=== PATIENT | male | born 1960 | race Caucasian/White ===

== ENCOUNTER 2022-01-10 13:24 | Outpatient (RCR) | payer OTHER ==
[~2022-01-10] VITALS: Ht 193 cm; Wt 107.0 kg
[2022-01-10 14:29] LABS: HEMATOCRIT 45.7 % (42.0-52.0); HEMOGLOBIN 15.8 g/dl (13.5-18.0); MEAN CELL VOLUME 98 fl (80.0-100.0); MEAN CORPUSCULAR HEMOGLOBIN 34 pg (27-31); MEAN CORPUSCULAR HGB CONC 35 g/dl (33.0-37.0); MEAN PLATELET VOLUME 8.6 fl (7.4-10.4); PLATELET COUNT 228 K/mm3 (130-400); RED BLOOD COUNT 4.67 M/mm3 (4.20-5.60); REDCELL DISTRIBUTION WIDTH-CV 12.2 % (11.5-14.5)
[2022-01-10] MEDS ORDERED: ROCEPHIN 2GM VIAL21 IV (14:34)
[2022-01-10] MEDS ORDERED: MOTRIN 200200 MG/TAB PO (14:34)
[2022-01-10 14:55] LABS: ERYTHROCYTE SEDIMENTATION RATE 16 mm/hr (0-30)
[2022-01-10 15:07] VITALS: BP 130/77; PULSE 78; TEMP 97
== END 2022-01-10 14:50 | disposition home or self-care (01) ==
LOC: EUO 13:24
PROVIDERS: Orthopaedic Surgery
DX: Z45.2 Encounter for adjustment and management of vascular access device (principal); M00.9 Pyogenic arthritis, unspecified; Z98.890 Other specified postprocedural states
CPT/HCPCS: C1751; J0696

== ENCOUNTER 2022-04-13 10:44 | Outpatient (CLI) | payer BC ==
[~2022-04-13] VITALS: Ht 193 cm; Wt 112.3 kg
[~2022-04-13 10:44] MED LIST: MOTRIN 200200 MG/TAB PO; ROCEPHIN 2GM VIAL21 IV
[2022-04-13 11:05] VITALS: BP 149/98; PULSE 79; TEMP 98.7
--- NOTE | 2022-04-13 12:20 | NUR ---
PICC placed, dressing remains clean, dry and intact. BONG wrap in place around PICC. He exits dept by ambulation to meet in waiting room, he refuses wheelchair assistance out.
== END 2022-04-13 12:25 | disposition home or self-care (01) ==
LOC: EUO 10:44
DX: M00.872 Arthritis due to other bacteria, left ankle and foot (principal)
CPT/HCPCS: C1751